=== PATIENT | female | born 1950 | race Caucasian/White ===

== ENCOUNTER → 2023-04-06 13:49 | Outpatient (BNVA) | payer MEDICARE, OTHER, SELFPAY | PROVIDERS: Visit Provider Nurse Practitioner Family | DX: Z12.31 Encounter for screening mammogram for malignant neoplasm of breast (principal); E55.9 Vitamin D deficiency, unspecified; Z79.899 Other long term (current) drug therapy; Z13.6 Encounter for screening for cardiovascular disorders | CPT/HCPCS: 80053; 80061; 81003; 82306; 83036; 84443; 85025 ==

== ENCOUNTER 2023-05-10 11:45 | Outpatient (CLI) | payer MEDICARE, OTHER, SELFPAY ==
--- NOTE | 2023-05-10 12:00 | MM_ITS ---
WS: [id number] Bilateral screening 3D tomosynthesis digital mammogram, 05/10/2023 Clinical Data: Z12.39 - Encounter for other screening for malignant neop... Comparison: None. Findings: The breast parenchymal pattern shows fat replacement. No spiculated masses or clustered calcification s are seen. There are no secondary signs of carcinoma. Impression: 1. Negative bilateral mammogram with no prior exam for review. 2. Recommend annual screening mammograms. MM/[place] [id number] BIRADS: 1-Negative FOLLOW UP: 1 Year Follow-up The CAD weight yardage checker was used.
== END 2023-05-10 11:46 | disposition home or self-care (01) ==
LOC: MOBLMAM 11:53
PROVIDERS: PCP Nurse Practitioner Family; Visit Provider Nurse Practitioner Family
DX: Z12.31 Encounter for screening mammogram for malignant neoplasm of breast (principal)
CPT/HCPCS: 77063; 77067; 80053; 80061; 82306; 83036; 84443; 85025

== ENCOUNTER 2024-05-23 11:36 | Outpatient (CLI) | payer MEDICARE, OTHER, SELFPAY ==
--- NOTE | 2024-05-23 11:40 | MM_ITS ---
WS: [id number] SCREENING DIGITAL TOMOSYNTHESIS MAMMOGRAM WITH CAD HISTORY: SCREENING COMPARISON: 05/10/2023 Bilateral CC and MLO with tomosynthesis views submitted. Synthetic mammography reviewed. Computer aid ed detection analyzed. Breast composition: The breasts are almost entirely fatty. No suspicious masses, microcalcifications or architectural distortion. Stable asymmetry in the anterior LEFT breast. Benign calcification in th e medial LEFT breast. MM/MM scr BI tomosynthesis [id number] IMPRESSION: BI-RADS: 2 - Benign. FOLLOW UP: 1 Year Follow-up
== END 2024-05-23 11:37 | disposition home or self-care (01) ==
LOC: MOBLMAM 11:39
PROVIDERS: PCP Nurse Practitioner Family; Visit Provider Nurse Practitioner Family
DX: Z12.31 Encounter for screening mammogram for malignant neoplasm of breast (principal); R92.313 Mammographic fatty tissue density, bilateral breasts; N64.89 Other specified disorders of breast; R92.1 Mammographic calcification found on diagnostic imaging of breast
CPT/HCPCS: 77063; 77067